=== PATIENT | female | born 1950 | race Caucasian/White ===

== ENCOUNTER → 2017-09-11 | Outpatient (CLI) | payer MEDICARE, OTHER ==
[~2017-09-11] MED LIST: BENICAR; BIOTIN PO; ESCITALOPRAM OX10 MG PO; FLOVENT HFA12 G1 INH; LEVAQUIN500 MG PO; LRT10 PO; METFORMIN PO; NEXIUM40 MG PO; NFD30TCR PO; NOVOLOG SQ; ONGLYZA PO; OSTEO BI-FLEX1 EAC1; POTASSIUM PO; PREDNISONE20 MG PO; PROAIR HFA INH8.5 GM INH; SINGULAIR10 MG PO; TESSALON PERLE100 MG PO; VITAMIN D
--- NOTE | 2017-09-11 13:31 | Diagnostic Imaging Report ---
PROCEDURE:X-RAY ABDOMEN - KUB COMPARISON:None available. INDICATIONS:CALCULUS OF KIDNEY FINDINGS: Limited by body habitus. There is a non-obstructed bowel-gas pattern. There are no calcifications projected over the renal shadows, expected course of the ureters or bladder. There are no acute osseous abnormalities. Degenerative changes of spine. Pelvic phleboliths. Right upper and lower quadrant surgical clips. CONCLUSION: No evidence of renal stone. None obstructive bowel gas pattern. Dictated by: Jean Barcenas M.D. on 09/11/2017 at 13:41 Electronically approved by: Jean Barcenas M.D. on 09/11/2017 at 13:41
== END ==
LOC: RAD 12:03
PROVIDERS: ATTEND Urology
DX: N20.0 Calculus of kidney (principal)
CPT/HCPCS: 74000

== ENCOUNTER → 2018-11-07 | Outpatient (CLI) | payer MEDICARE, OTHER ==
[~2018-11-07] MED LIST changes: +DIATRIZOATE MEGL/DIATRIZOA SOD 30 ML BTL PO ONE; +IOPAMIDOL 370 MG/ML 200 ML INFUS..BTL INJ ONE; +SODIUM CHLORIDE 0.9% 50ML 50 ML ONE
[2018-11-07 14:40] LABS: BLOOD UREA NITROGEN 12 mg/dL (7-26); BUN/CREATININE RATIO 15 (6-25); CREATININE, SERUM 0.82 mg/dL (0.57-1.11); EST GLOMERULAR FILTRATION RATE > 60 ML/MIN (60-)
--- NOTE | 2018-11-07 16:17 | Diagnostic Imaging Report ---
EXAM: CT Abdomen and Pelvis WITH contrast INDICATION: Abdominal Pain COMPARISON: None. TECHNIQUE: Abdomen and pelvis were scanned utilizing a multidetector helical scanner from the lung base to the pubic symphysis after administration of IV contrast. Coronal and sagittal reformations were obtained. Routine protocol was performed. Scan was performed when during portal venous phase. IV CONTRAST: 100 cc of Isovue 370 ORAL CONTRAST: Water COMPLICATIONS: None RADIATION DOSE: Total DLP: 276.8 mGy*cm CTDIvol has been reviewed. It is below the limits set by the Radiation Protocol Committee (RPC). FINDINGS: LINES and TUBES: None. LOWER THORAX: Patchy dependent atelectasis. Scattered coronary atherosclerosis. HEPATOBILIARY: Diffuse hepatic steatosis. No evidence of focal lesion. Status post cholecystectomy. There is mild extra- hepatic biliary dilation likely post cholecystectomy reservoir effect. SPLEEN: No splenomegaly. PANCREAS: No focal masses or ductal dilatation. ADRENALS: No adrenal nodules KIDNEYS/URETERS: Kidneys enhance symmetrically. No evidence of hydronephrosis, solid mass, or stone. GI TRACT: No evidence of distention. There is mild thickening of the pylorus. There is scattered colonic diverticulosis without CT evidence of diverticulitis. The appendix is not visualized. There are surgical clips in the right lower quadrant, which may reflect prior appendectomy. PELVIC ORGANS/BLADDER: Status post hysterectomy. LYMPH NODES: No lymphadenopathy. VESSELS: There are scattered atherosclerotic calcifications in the aorta and branch vessels. PERITONEUM / RETROPERITONEUM: No free air or fluid. BONES AND SOFT TISSUES: No acute osseous abnormality. No suspicious lytic or blastic lesions. Mild degenerative disc changes of the lumbar spine. CONCLUSION: Diffuse hepatic steatosis. Mild pyloric thickening may reflect contraction or inflammatory etiology. If clinically indicated, endoscopy may be considered. Status post cholecystectomy. Appendix is not visualized. Signed by: Dr. Darrius Rawls MD on 11/07/2018 4:13 PM
== END ==
LOC: CT 13:52
PROVIDERS: ATTEND Family Medicine
DX: R10.84 Generalized abdominal pain (principal)
CPT/HCPCS: 36415; 74177; 82565; 84520; Q9967

== ENCOUNTER → 2018-11-15 | Day surgery (SDC) | payer MEDICARE, OTHER ==
[2018-11-13 11:18] LABS: BASOPHILS % 0.4 % (0.0-1.0); EOSINOPHILS # (AUTO) 0.1 (0.0-0.4); EOSINOPHILS % 1.3 % (0.0-6.0); HEMATOCRIT 37.1 % (34.2-44.1); HEMOGLOBIN 12.5 g/dL (12.0-16.0); LYMPHOCYTES # (AUTO) 1.4 (1.0-3.2); LYMPHOCYTES % 31.4 % (18.0-39.1); MEAN CORPUSCULAR HEMOGLOBIN 31.3 pg (28-32); MEAN CORPUSCULAR HGB CONC 33.7 g/dL (31-35); MONOCYTES # (AUTO) 0.5 (0.2-0.8); MONOCYTES % 10.7 % (4.4-11.3); NEUTROPHILS # (AUTO) 2.6 (2.1-6.9); NEUTROPHILS % 55.8 % (38.7-80.0); PLATELET COUNT 168 x10e3/uL (140-360); RED BLOOD COUNT 3.99 x10e6/uL (3.6-5.1); RED CELL DISTRIBUTION WIDTH 14.1 % (11.7-14.4)
[~2018-11-15] MED LIST changes: -DIATRIZOATE MEGL/DIATRIZOA SOD 30 ML BTL PO ONE; +DICYCLOMINE HCL10 MG PO; +ENBREL50 MG/1 ML SQ; +FENTANYL CITRATE/PF 100MCG/2 ML INJ ONE; +FOLIC ACID1 MG PO; +HYOSCYAMINE 0.125 MG TAB ONE; -IOPAMIDOL 370 MG/ML 200 ML INFUS..BTL INJ ONE; +JANUVIA100 MG PO; +LEVOTHYROXINE137 MCG PO; +METHOTREXATE2.5 MG PO; +MIDAZOLAM HCL 2 MG/2 ML VIAL ONE; +PROPOFOL IV EMULSION 10 MG/ML 50 ML VIAL ONE; -SODIUM CHLORIDE 0.9% 50ML 50 ML ONE; +TRESIBA SQ
--- OUTSIDE RECORDS SUMMARY | 2018-11-15 06:42 | XMS REPORT | Continuity of Care Document ---
Author [facility] [place] [facility] Address Unknown Phone Unavailable Problems Problem Status Onset Date Classification Date Reported Comments Source Long-term use of high-risk medication Active Problem 11/08/2018 Miguel A Pastor Osteoporosis screening Active Diagnosis 10/11/2017 Miguel A Pastor Primary osteoarthritis, right hand Active Problem 11/08/2018 Miguel A Dawit Seronegative rheumatoid arthritis Active Problem 11/08/2018 Miguel A Dawit Inflammatory arthritis Active Problem 11/08/2018 Miguel A Dawit Primary osteoarthritis of left hand Active Problem 11/08/2018 Miguel A Pastor Low back pain Active Diagnosis 07/31/2018 Miguel A Pastor Discoloration of skin Active Diagnosis 10/11/2017 Miguel A Pastor Medications Medication Details Route Status Patient Instructions Ordering Provider Order Date Source Methotrexate 4 tablets Orally Active 2.5 MG Orally once a week [place] 07/30/2018 Miguel A Pastor Methotrexate 6 tablets Orally Active 2.5 MG Orally q week [place] 01/08/2018 Miguel A Pastor Folic Acid 1 tablet Orally Active 1 MG Orally Once a day [place] 01/08/2018 Miguel A Pastor Enbrel 1 ml Subcutaneous Active 50 MG/ML Subcutaneous once a week [place] 10/09/2017 Miguel A Pastor Methotrexate Sodium 8 tablest once a week Orally Active 2.5 MG Orally weekly [facility] 06/14/2017 Miguel A Pastor Folic Acid 1 tablet Orally Active 1 MG Orally Once a day [facility] 06/14/2017 Miguel A Pastor Levothyroxine Sodium 1 tablet Orally Active 0.15 MG Orally Once a day [place] Miguel A Pastor Ibuprofen 1 tablet with food or milk Orally Active 600 MG Orally twice a day as needed [facility] Miguel A Pastor Montelukast Sodium 1 tablet in the evening Orally Active 10 MG Orally Once a day [place] Miguel A Pastor Escitalopram Oxalate 1 tablet Orally Active 10 MG Orally Once a day [place] Miguel A Pastor MetFORMIN HCl ER 2 tablets Orally Active 500 MG Orally twice a day [place] Miguel A Pastor Januvia 1 tablet Orally Active 100 MG Orally Once a day [place] Miguel A Pastor Enbrel 1 ml Subcutaneous Active 50 MG/ML Subcutaneous once a week [place] Miguel A Pastor Allergies, Adverse Reactions, Alerts Substance Category Reaction Severity Reaction type Status Date Reported Comments Source Codeine Adverse Reaction anaphylaxis Adverse Reaction Active 03/20/2018 Miguel A Pastor Tetanus Immune Globulin Adverse Reaction flu symptoms Adverse Reaction Active 07/30/2018 Miguel A Pastor Sulfazine Adverse Reaction Info Not Available Adverse Reaction Active 07/30/2018 Miguel A Pastor Morphine Sulfate Adverse Reaction itching Adverse Reaction Active 07/30/2018 Miguel A Pastor Leflunomide Adverse Reaction Info Not Available Adverse Reaction Active 07/30/2018 Miguel A Pastor Immunizations Immunization Date Given Site Status Last Updated Comments Source Results Order Name Results Value Reference Range Date Interpretation Comments Source Vital Signs Vital Sign Value Date Comments Source Weight 171.6 07/30/2018 Miguel A Pastor Height 65 07/30/2018 Miguel A Pastor Temperature Oral (F) 98.7 F 07/30/2018 Miguel A Pastor Heart Rate 84 07/30/2018 Miguel A Pastor Diastolic (mm Hg) 60 07/30/2018 Miguel A Pastor Systolic (mm Hg) 118 07/30/2018 Miguel A Pastor Weight 176.1 05/29/2018 Miguel A Pastor Height 64 05/29/2018 Miguel A Pastor Temperature Oral (F) 99.1 F 05/29/2018 Miguel A Pastor Heart Rate 76 05/29/2018 Miguel A Pastor Diastolic (mm Hg) 80 05/29/2018 Miguel A Pastor Systolic (mm Hg) 132 05/29/2018 Miguel A Pastor Weight 167 03/20/2018 Miguel A Pastor Height 64 03/20/2018 Miguel A Pastor Temperature Oral (F) 99.1 F 03/20/2018 Miguel A Pastor Heart Rate 76 03/20/2018 Miguel A Pastor Diastolic (mm Hg) 62 03/20/2018 Miguel A Pastor Systolic (mm Hg) 118 03/20/2018 Miguel A Pastor Weight 167 01/08/2018 Miguel A Pastor Height 64 01/08/2018 Miguel A Pastor Temperature Oral (F) 98.1 F 01/08/2018 Miguel A Pastor Heart Rate 72 01/08/2018 Miguel A Pastor Diastolic (mm Hg) 72 01/08/2018 Miguel A Pastor Systolic (mm Hg) 108 01/08/2018 Miguel A Pastor Weight 176 11/02/2017 Miguel A Pastor Height 64 11/02/2017 Miguel A Pastor Temperature Oral (F) 98.2 F 11/02/2017 Miguel A Pastor Heart Rate 80 11/02/2017 Miguel A Pastor Diastolic (mm Hg) 70 11/02/2017 Miguel A Pastor Systolic (mm Hg) 126 11/02/2017 Miguel A Pastor Weight 175 10/09/2017 Miguel A Pastor Height 64 10/09/2017 Miguel A Pastor Temperature Oral (F) 98.5 F 10/09/2017 Miguel A Pastor Heart Rate 76 10/09/2017 Miguel A Pastor Diastolic (mm Hg) 76 10/09/2017 Miguel A Pastor Systolic (mm Hg) 108 10/09/2017 Miguel A Pastor Weight 169 09/08/2017 Miguel A Pastor Height 64 09/08/2017 Miguel A Pastor Temperature Oral (F) 98.5 F 09/08/2017 Miguel A Pastor Heart Rate 80 09/08/2017 Miguel A Pastor Diastolic (mm Hg) 70 09/08/2017 Miguel A Pastor Systolic (mm Hg) 110 09/08/2017 Miguel A Pastor Weight 175 07/10/2017 Miguel A Pastor Height 64 07/10/2017 Miguel A Pastor Temperature Oral (F) 98.1 F 07/10/2017 Miguel A Pastor Heart Rate 77 07/10/2017 Miguel A Pastor Diastolic (mm Hg) 78 07/10/2017 Miguel A Pastor Systolic (mm Hg) 118 07/10/2017 Miguel A Pastor Encounters Location Location Details Encounter Type Encounter Number Reason For Visit Attending Provider ADM Date DC Date Status Source Procedures Procedure Code Date Perfomer Comments Source
--- OUTSIDE RECORDS SUMMARY | 2018-11-15 06:42 | XMS REPORT ---
Author Author Filomena Heller Organization [employer] Address Unknown Phone Unavailable Care Team Providers Care Religious Healer Name Role Phone Pnia Pipoerica CP Unavailable Allergies, Adverse Reactions, Alerts Substance Reaction Event Type Codeine anaphylaxis Drug Allergy Tetanus Immune Globulin flu symptoms Drug Allergy Sulfazine Info Not Available Drug Allergy Morphine Sulfate itching Drug Allergy Leflunomide Info Not Available Drug Allergy Problems Problem Type Condition Code Onset Dates Condition Status Assessment Long-term use of high-risk medication Z79.899 Active Assessment Osteoporosis screening Z13.820 Active Problem Long-term use of high-risk medication Z79.899 Active Problem Primary osteoarthritis, right hand M19.041 Active Problem Seronegative rheumatoid arthritis M06.00 Active Assessment Seronegative rheumatoid arthritis M06.00 Active Assessment Inflammatory arthritis M19.90 Active Problem Primary osteoarthritis of left hand M19.042 Active Problem Inflammatory arthritis M19.90 Active Medications Medication Code System Code Instructions Start Date End Date Status Dosage Levothyroxine Sodium [facility] [address]-77 0.15 MG Orally Once a day Active 1 tablet Ibuprofen ND 08024486475 600 MG Orally twice a day as needed Active 1 tablet with food or milk Methotrexate Sodium NDC 0 2.5 MG Orally weekly Jun 14, 2017 Active 8 tablest once a week Montelukast Sodium ND 40186322593 10 MG Orally Once a day Active 1 tablet in the evening Escitalopram Oxalate ND 95155927316 10 MG Orally Once a day Active 1 tablet MetFORMIN HCl ER ND 90177580943 500 MG Orally twice a day Active 2 tablets Folic Acid ND 74722116826 1 MG Orally Once a day Jun 14, 2017 March 07, 2018 Active 1 tablet Vital Signs Date/Time: Sep 08, 2017 BMI 29.01 Index Weight 169 lbs Height 64 in Temperature 98.5 F Cardiac Monitoring Heart Rate 80 /min Blood Pressure Diastolic 70 mm Hg Blood Pressure Systolic 110 mm Hg Results No Known Results Summary Purpose [employer] Submission
--- OUTSIDE RECORDS SUMMARY | 2018-11-15 06:42 | XMS REPORT ---
Author Author Addi Pastor Organization [employer] Address Unknown Phone Unavailable Care Team Providers Care Haul Truck Driver Name Role Phone Addi Pastor CP Unavailable Allergies No Known Allergies Problems Problem Type Condition Code Onset Dates Condition Status Problem Long-term use of high-risk medication Z79.899 Active Problem Primary osteoarthritis, right hand M19.041 Active Problem Seronegative rheumatoid arthritis M06.00 Active Problem Primary osteoarthritis of left hand M19.042 Active Problem Inflammatory arthritis M19.90 Active Medications No Known Medications Results No Known Results Summary Purpose [employer] Submission
--- OUTSIDE RECORDS SUMMARY | 2018-11-15 06:42 | XMS REPORT ---
Author Author Addi Pastor Organization [employer] Address Unknown Phone Unavailable Care Team Providers Care In School Suspension Coordinator Name Role Phone Addi Pastor CP Unavailable Allergies, Adverse Reactions, Alerts Substance Reaction Event Type Codeine anaphylaxis Drug Allergy Tetanus Immune Globulin flu symptoms Drug Allergy Sulfazine Info Not Available Drug Allergy Morphine Sulfate itching Drug Allergy Leflunomide Info Not Available Drug Allergy Problems Problem Type Condition Code Onset Dates Condition Status Assessment Seronegative rheumatoid arthritis M06.00 Active Problem Long-term use of high-risk medication Z79.899 Active Problem Primary osteoarthritis, right hand M19.041 Active Problem Seronegative rheumatoid arthritis M06.00 Active Assessment Inflammatory arthritis M19.90 Active Assessment Long-term use of high-risk medication Z79.899 Active Problem Primary osteoarthritis of left hand M19.042 Active Problem Inflammatory arthritis M19.90 Active Medications Medication Code System Code Instructions Start Date End Date Status Dosage Methotrexate [facility] 04010098042 2.5 MG Orally q week January 08, 2018 Active 4 tablets MetFORMIN HCl ER ND 82624344754 500 MG Orally twice a day Active 2 tablets Levothyroxine Sodium [facility] [address]-24 0.15 MG Orally Once a day Active 1 tablet Folic Acid [facility] 78583480838 1 MG Orally Once a day January 08, 2018 May 08, 2018 Active 1 tablet Escitalopram Oxalate ND 58269480822 10 MG Orally Once a day Active 1 tablet Enbrel [facility] 32990651058 50 MG/ML Subcutaneous once a week Active 1 ml Montelukast Sodium ND 67666885822 10 MG Orally Once a day Active 1 tablet in the evening Vital Signs Date/Time: January 08, 2018 BMI 28.66 Index Weight 167 lbs Height 64 in Temperature 98.1 F Cardiac Monitoring Heart Rate 72 /min Blood Pressure Diastolic 72 mm Hg Blood Pressure Systolic 108 mm Hg Results No Known Results Summary Purpose [employer] Submission
--- OUTSIDE RECORDS SUMMARY | 2018-11-15 06:42 | XMS REPORT ---
Author Author Addi Pastor Organization [employer] Address Unknown Phone Unavailable Care Team Providers Care Yarn Texturing Machine Operator Name Role Phone Addi Pastor CP Unavailable Allergies No Known Allergies Problems Problem Type Condition Code Onset Dates Condition Status Problem Long-term use of high-risk medication Z79.899 Active Problem Primary osteoarthritis, right hand M19.041 Active Problem Seronegative rheumatoid arthritis M06.00 Active Assessment Seronegative rheumatoid arthritis M06.00 Active Problem Primary osteoarthritis of left hand M19.042 Active Problem Inflammatory arthritis M19.90 Active Medications Medication Code System Code Instructions Start Date End Date Status Dosage Enbrel [facility] 22243733334 50 MG/ML Subcutaneous once a week Oct 09, 2017 Active 1 ml Results No Known Results Summary Purpose [employer] Submission
--- OUTSIDE RECORDS SUMMARY | 2018-11-15 06:42 | XMS REPORT | Clinical Summary ---
Author Author [employer] [facility] [employer] Address Unknown Phone Unavailable Care Team Providers Care Steam Distribution Supervisor Name Role Phone Herman Pierre DO PCP Allergies Not on File Medications Not on file Active Problems Not on file Encounters Care Team Description Date Type Specialty Skip Velarde MD Low back pain, unspecified back pain laterality, unspecified chronicity, with sciatica presence unspecified (Primary Dx) 08/15/2018 Transcribe Physical Therapy Orders Skip Velarde MD Low back pain, unspecified back pain laterality, unspecified chronicity, with sciatica presence unspecified (Primary Dx); Spondylosis of lumbosacral region without myelopathy or radiculopathy; Other intervertebral disc degeneration, lumbar region 07/18/2018 Transcribe Physical Therapy Orders after 11/14/2017 Social History Date Tobacco Use Types Packs/Day Years Used Never Assessed Sex Assigned at Date Recorded Not on file Industry Job Start Date Occupation Not on file Not on file Not on file Travel End Travel History Travel Start No recent travel history available. Last Filed Vital Signs Not on file Plan of Treatment Health Maintenance Due Date Last Done Comments BREAST CANCER SCREENING 2001 COLON CANCER SCREENING 2001 SHINGLES VACCINES (#1) 2001 65+ PNEUMOCOCCAL VACCINE 2016 (1 of 2 - PCV13) PNEUMOCOCCAL 2016 POLYSACCHARIDE VACCINE AGE 65 AND OVER INFLUENZA VACCINE 03/21/2018 Results Not on fileafter 11/14/2017 Insurance Payer Benefit Subscriber ID Type Phone Address Plan / Group MEDICARE MEDICARE xxxxxxxxxxx Medicare [place] PART A AND B AETNA AETNA xxxxxxxxx HMO HMO,POS,EP O, MC/EC Advance Directives Patient has advance care planning documents on file. For more information, jhony dunne contact: Jas Wright [address] [place] [address]
--- OUTSIDE RECORDS SUMMARY | 2018-11-15 06:42 | XMS REPORT ---
Author Author Filomena Heller Organization [employer] Address Unknown Phone Unavailable Care Team Providers Care Tobacco Warehouse Agent Name Role Phone Filomena Heller CP Unavailable Allergies, Adverse Reactions, Alerts Substance Reaction Event Type Codeine anaphylaxis Drug Allergy Tetanus Immune Globulin flu symptoms Drug Allergy Sulfazine Info Not Available Drug Allergy Morphine Sulfate itching Drug Allergy Leflunomide Info Not Available Drug Allergy Problems Problem Type Condition Code Onset Dates Condition Status Problem Primary osteoarthritis, right hand M19.041 Active Problem Primary osteoarthritis of left hand M19.042 Active Problem Long-term use of high-risk medication Z79.899 Active Assessment Long-term use of high-risk medication Z79.899 Active Problem Inflammatory arthritis M19.90 Active Assessment Inflammatory arthritis M19.90 Active Medications Medication Code System Code Instructions Start Date End Date Status Dosage Escitalopram Oxalate ND 34102966794 10 MG Orally Once a day Active 1 tablet Ibuprofen ND 20008484049 600 MG Orally twice a day as needed Active 1 tablet with food or milk Folic Acid ND 56441310831 1 MG Orally Once a day Jun 14, 2017 Oct 12, 2017 Active 1 tablet Montelukast Sodium ND 00447953684 10 MG Orally Once a day Active 1 tablet in the evening Levothyroxine Sodium [facility] [address]-24 0.15 MG Orally Once a day Active 1 tablet Methotrexate Sodium ND 0 2.5 MG Orally weekly Jun 14, 2017 Active 8 tablest once a week MetFORMIN HCl ER ND 84703598047 500 MG Orally twice a day Active 2 tablets Vital Signs Date/Time: Jul 10, 2017 BMI 30.04 Index Weight 175 lbs Height 64 in Temperature 98.1 F Cardiac Monitoring Heart Rate 77 /min Blood Pressure Diastolic 78 mm Hg Blood Pressure Systolic 118 mm Hg Results No Known Results Summary Purpose [employer] Submission
--- OUTSIDE RECORDS SUMMARY | 2018-11-15 06:42 | XMS REPORT ---
Author Author Addi Pastor Organization [employer] Address Unknown Phone Unavailable Care Team Providers Care Manager Program Name Role Phone Addi Pastor CP Unavailable [...]
--- OUTSIDE RECORDS SUMMARY | 2018-11-15 06:42 | XMS REPORT ---
Author Author Uzma Guillaume [facility] [employer] Address Unknown Phone Unavailable Care Team Providers Care Search Engine Marketing Manager Name Role Phone Uzma Guillaume CP Unavailable Allergies, Adverse Reactions, Alerts Substance [...] Assessment Seronegative rheumatoid arthritis M06.00 Active Assessment Long-term use of high-risk medication Z79.899 Active Problem Primary osteoarthritis of left hand M19.042 Active Problem Inflammatory arthritis M19.90 Active Medications Medication Code System Code Instructions Start Date End Date Status Dosage Montelukast Sodium [facility] 23883072745 10 MG Orally Once a day Active 1 tablet in the evening Levothyroxine Sodium [facility] [address]-34 0.15 MG Orally Once a day Active 1 tablet Escitalopram Oxalate [facility] 22828674588 10 MG Orally Once a day Active 1 tablet Enbrel [facility] 26773990953 50 MG/ML Subcutaneous once a week Oct 09, 2017 Active 1 ml MetFORMIN HCl ER [facility] 00494533635 500 MG Orally twice a day Active 2 tablets Vital Signs Date/Time: November 02, 2017 BMI 30.21 Index Weight 176 lbs Height 64 in Temperature 98.2 F Cardiac Monitoring Heart Rate 80 /min Blood Pressure Diastolic 70 mm Hg Blood Pressure Systolic 126 mm Hg Results No Known Results Summary Purpose [employer] Submission
--- OUTSIDE RECORDS SUMMARY | 2018-11-15 06:42 | XMS REPORT ---
Author Author Filomena Heller Organization [employer] Address Unknown Phone Unavailable Care Team Providers Care Service Delivery Supervisor Name Role Phone Filomena Heller CP Unavailable Allergies, Adverse Reactions, Alerts Substance Reaction Event Type Codeine anaphylaxis Drug Allergy Tetanus Immune Globulin flu symptoms Drug Allergy Sulfazine Info Not Available Drug Allergy Morphine Sulfate itching Drug Allergy Leflunomide Info Not Available Drug Allergy Problems Problem Type Condition Code Onset Dates Condition Status Assessment Discoloration of skin L81.9 Active Assessment Inflammatory arthritis M19.90 Active Assessment Osteoporosis screening Z13.820 Active Problem [...] Date End Date Status Dosage Montelukast Sodium [facility] 51019597258 10 MG Orally Once a day Active 1 tablet in the evening Enbrel [facility] 67608805394 50 MG/ML Subcutaneous once a week Oct 09, 2017 Active 1 ml MetFORMIN HCl ER ND 56856249071 500 MG Orally twice a day Active 2 tablets Folic Acid ND 09609638340 1 MG Orally Once a day Jun 14, 2017 Active 1 tablet Methotrexate Sodium NDC 0 2.5 MG Orally weekly Jun 14, 2017 Active 8 tablest once a week Escitalopram Oxalate ND 01432862854 10 MG Orally Once a day Active 1 tablet Levothyroxine Sodium [facility] [address]-43 0.15 MG Orally Once a day Active 1 tablet Vital Signs Date/Time: Oct 09, 2017 BMI 30.04 Index Weight 175 lbs Height 64 in Temperature 98.5 F Cardiac Monitoring Heart Rate 76 /min Blood Pressure Diastolic 76 mm Hg Blood Pressure Systolic 108 mm Hg Results Name Result Date Reference Range Unit Abnormality Flag COMPREHENSIVE METABOLIC PANEL W/EGFR ----CALCIUM 9.4 20171009 8.6-10.4 mg/dL N ----CARBON DIOXIDE 31 20171009 20-31 mmol/L N ----ALT 26 20171009 6-29 U/L N ----CREATININE 0.77 20171009 0.50-0.99 mg/dL N ----AST 24 20171009 10-35 U/L N ----eGFR NON-AFR. TRINIDADIAN 80 20171009 > OR=60 mL/min/1.73m2 N ----ALKALINE PHOSPHATASE 100 20171009 33-130 U/L N ----eGFR 93 20171009 > OR=60 mL/min/1.73m2 N ----BILIRUBIN, TOTAL 0.5 20171009 0.2-1.2 mg/dL N ----BUN/CREATININE RATIO NOT APPLICABLE 20171009 6-22 (calc) ----ALBUMIN/GLOBULIN RATIO 1.8 20171009 1.0-2.5 (calc) N ----SODIUM 136 20171009 135-146 mmol/L N ----GLOBULIN 2.3 [id number] 1.9-3.7 g/dL (calc) N ----POTASSIUM 4.2 20171009 3.5-5.3 mmol/L N ----GLUCOSE 361 20171009 65-99 mg/dL H ----CHLORIDE 99 20171009 98-110 mmol/L N ----ALBUMIN 4.1 20171009 3.6-5.1 g/dL N ----UREA NITROGEN (BUN) 10 20171009 7-25 mg/dL N ----PROTEIN, TOTAL 6.4 20171009 6.1-8.1 g/dL N SED RATE BY MODIFIED WESTERGREN ----SED RATE BY MODIFIED WESTERGREN 6 20171009 < OR=30 mm/h N C-REACTIVE PROTEIN ----C-REACTIVE PROTEIN 4.9 20171009 <8.0 mg/L N CBC (INCLUDES DIFF/PLT) ----MCHC 33.2 20171009 32.0-36.0 g/dL N ----MCH 31.2 20171009 27.0-33.0 pg N ----PLATELET COUNT 200 [id number] 140-400 Thousand/uL N ----RDW 13.5 17662738 11.0-15.0 % N ----BASOPHILS 0.9 33678905 % N ----ABSOLUTE NEUTROPHILS 1824 [id number] 0535-2764 cells/uL N ----ABSOLUTE LYMPHOCYTES 1180 [id number] 850-3900 cells/uL N ----MPV 10.1 [id number] 7.5-12.5 fL N ----ABSOLUTE BASOPHILS 32 41769402 0-200 cells/uL N ----HEMATOCRIT 41.9 60954581 35.0-45.0 % N ----NEUTROPHILS 52.1 52812130 % N ----MCV 94.2 60601126 80.0-100.0 fL N ----RED BLOOD CELL COUNT 4.45 [id number] 3.80-5.10 Million/uL N ----ABSOLUTE MONOCYTES 343 28230158 200-950 cells/uL N ----ABSOLUTE EOSINOPHILS 123 93588158 15-500 cells/uL N ----HEMOGLOBIN 13.9 30066647 11.7-15.5 g/dL N ----EOSINOPHILS 3.5 89612410 % N ----WHITE BLOOD CELL COUNT 3.5 18171644 3.8-10.8 Thousand/uL L ----LYMPHOCYTES 33.7 71814939 % N ----MONOCYTES 9.8 78097906 % N Summary Purpose eClinicalWorks Submission
--- OUTSIDE RECORDS SUMMARY | 2018-11-15 06:42 | XMS REPORT ---
Author Author Adid Pastor Organization [employer] Address Unknown Phone Unavailable Care Team Providers Care Primary Care Pediatrician Name Role Phone Addi Pastor CP Unavailable [...]
--- OUTSIDE RECORDS SUMMARY | 2018-11-15 06:42 | XMS REPORT ---
Author Author Uzma Guillaume Organization [employer] Address Unknown Phone Unavailable Care Team Providers Care Foundry Technician Name Role Phone Uzma Guillaume Unavailable Allergies, Adverse Reactions, Alerts Substance Reaction Event Type Tetanus Immune Globulin flu symptoms Drug Allergy Sulfazine Info Not Available Drug Allergy Morphine Sulfate itching Drug Allergy Leflunomide Info Not Available Drug Allergy Problems Problem Type Condition Code Onset Dates Condition Status Assessment Long-term use of high-risk medication Z79.899 Active Assessment Low back pain M54.5 Active Problem Long-term use of high-risk medication Z79.899 Active Problem Primary osteoarthritis, right hand M19.041 Active Problem Seronegative rheumatoid arthritis M06.00 Active Assessment Seronegative rheumatoid arthritis M06.00 Active Problem Primary osteoarthritis of left hand M19.042 Active Problem Inflammatory arthritis M19.90 Active Medications Medication Code System Code Instructions Start Date End Date Status Dosage Levothyroxine Sodium [facility] [address]-03 0.15 MG Orally Once a day Active [address] [facility] 76070992300 100 MG Orally Once a day Active [address] [facility] 59895577538 50 MG/ML Subcutaneous once a week Oct 09, 2017 Active [address] [facility] 17834228919 2.5 MG Orally once a week Jul 30, 2018 Active 4 tablets Vital Signs Date/Time: Jul 30, 2018 BMI 28.55 Index Weight 171.6 lbs Height 65 in Temperature 98.7 F Cardiac Monitoring Heart Rate 84 /min Blood Pressure Diastolic 60 mm Hg Blood Pressure Systolic 118 mm Hg Results No Known Results Summary Purpose [employer] Submission
--- OUTSIDE RECORDS SUMMARY | 2018-11-15 06:42 | XMS REPORT ---
Author Author Addi Pastor Organization [employer] Address Unknown Phone Unavailable Care Team Providers Care Email Marketing Coordinator Name Role Phone Addi Pastor CP Unavailable Allergies, Adverse Reactions, Alerts Substance Reaction Event Type Codeine anaphylaxis Drug Allergy Tetanus Immune Globulin flu symptoms Drug Allergy Sulfazine Info Not Available Drug Allergy Morphine Sulfate itching Drug Allergy Leflunomide Info Not Available Drug Allergy Problems Problem Type Condition Code Onset Dates Condition Status Assessment Long-term use of high-risk medication Z79.899 Active Assessment Primary osteoarthritis, right hand M19.041 Active Assessment Primary osteoarthritis of left hand M19.042 Active [...] Date End Date Status Dosage Levothyroxine Sodium [facility] [address]-02 0.15 MG Orally Once a day Active 1 tablet Montelukast Sodium ND 13352740577 10 MG Orally Once a day Active 1 tablet in the evening MetFORMIN HCl ER ND 82893792333 500 MG Orally twice a day Active 2 tablets Enbrel [facility] 52314271802 50 MG/ML Subcutaneous once a week Oct 09, 2017 Active 1 ml Escitalopram Oxalate ND 55442438018 10 MG Orally Once a day Active 1 tablet Methotrexate ND 51266619196 2.5 MG Orally q week January 08, 2018 Active 6 tablets Folic Acid ND 95209811355 1 MG Orally Once a day January 08, 2018 Active 1 tablet Vital Signs Date/Time: March 20, 2018 BMI 28.66 Index Weight 167 lbs Height 64 in Temperature 99.1 F Cardiac Monitoring Heart Rate 76 /min Blood Pressure Diastolic 62 mm Hg Blood Pressure Systolic 118 mm Hg Results No Known Results Summary Purpose [employer] Submission
--- OUTSIDE RECORDS SUMMARY | 2018-11-15 06:43 | XMS REPORT ---
Author Author Addi Pastor Organization [employer] Address Unknown Phone Unavailable Care Team Providers Care Color Maker Name Role Phone Addi Pastor CP Unavailable [...] Start Date End Date Status Dosage Enbrel [facility] 73963994214 50 MG/ML Subcutaneous once a week Oct 09, 2017 Active 1 ml Results No Known Results Summary Purpose [employer] Submission
--- OUTSIDE RECORDS SUMMARY | 2018-11-15 06:43 | XMS REPORT ---
Author Author Addi Pastor Organization [employer] Address Unknown Phone Unavailable Care Team Providers Care Brewery Representative Name Role Phone Addi Pastor CP Unavailable [...]
--- OUTSIDE RECORDS SUMMARY | 2018-11-15 06:43 | XMS REPORT ---
Author Author Uzma Guillaume [facility] e[employer] Address Unknown Phone Unavailable Care Team Providers Care Chart Writer Name Role Phone Uzma Guillaume CP Unavailable Allergies, Adverse Reactions, Alerts Substance Reaction Event Type Tetanus Immune Globulin flu symptoms Drug Allergy Sulfazine Info Not Available Drug Allergy Morphine Sulfate itching Drug Allergy Leflunomide Info Not Available Drug Allergy Problems Problem Type Condition Code Onset Dates Condition Status Assessment Low back pain M54.5 Active Assessment Inflammatory arthritis M19.90 Active Assessment Long-term use of high-risk medication Z79.899 Active Problem Long-term use of high-risk medication Z79.899 Active Problem Primary osteoarthritis, right hand M19.041 Active Problem Seronegative rheumatoid arthritis M06.00 Active Assessment Seronegative rheumatoid arthritis M06.00 Active Problem Primary osteoarthritis of left hand M19.042 Active Problem Inflammatory arthritis M19.90 Active Medications Medication Code System Code Instructions Start Date End Date Status Dosage Enbrel [facility] 07496648155 50 MG/ML Subcutaneous once a week Oct 09, 2017 Active 1 ml Escitalopram Oxalate [facility] 45600729721 10 MG Orally Once a day Active 1 tablet Montelukast Sodium [facility] 40491036243 10 MG Orally Once a day Active 1 tablet in the evening MetFORMIN HCl ER [facility] 88205541777 500 MG Orally twice a day Active 2 tablets Folic Acid [facility] 98221233134 1 MG Orally Once a day January 08, 2018 Active 1 tablet Levothyroxine Sodium [facility] [address]-65 0.15 MG Orally Once a day Active 1 tablet Vital Signs Date/Time: May 29, 2018 BMI 30.22 Index Weight 176.1 lbs Height 64 in Temperature 99.1 F Cardiac Monitoring Heart Rate 76 /min Blood Pressure Diastolic 80 mm Hg Blood Pressure Systolic 132 mm Hg Results No Known Results Summary Purpose [employer] Submission
--- OUTSIDE RECORDS SUMMARY | 2018-11-15 06:43 | XMS REPORT ---
Author Author [facility] Address Unknown Phone Unavailable Care Team Providers Care Oracle Solutions Architect Name Role Phone HERLINDA ROMERO Unavailable Unavailable VIJAY VEGA Unavailable Unavailable YOVANI BOLANOS Unavailable Unavailable Problems This patient has no known problems. Allergies, Adverse Reactions, Alerts This patient has no known allergies or adverse reactions. Medications This patient has no known medications. Results Test Description Test Time Test Comments Text Results Atomic Results Result Comments CT ABDOMEN/PELVIS W 2018-11-07 15:58:00 [place] [address] Patient Name: SKY GUILLAUME MR #: [id number] : 1950 Age/Sex: 68/F Req #: [id number] Adm Physician: Ordered by: ROMERO ANDREW DO Report #: [id number] Location: CT Room/Bed: Procedure: [id number] CT/CT ABDOMEN/PELVIS W Exam Date: 11/07/18 Exam Time: 1515 REPORT STATUS: Signed EXAM: CT Abdomen and Pelvis WITH contrast INDICA TION: Abdominal Pain COMPARISON: None. TECHNIQUE: Abdomen and pelvis were scanned utilizing a multidetector helical scanner from the lung base to the pubic symphysis after administration of IV contrast. Coronal and sagittal reformations were obtained. Routine protocol was performed. Scan was performed when during portal venous phase. IV CONTRAST: 100 cc of Isovue 370 ORAL CONTRAST: Water COMPLICATIONS: None RADIATION DOSE: Total DLP: 276.8 mGy*cm CTDIvol has been reviewed. It is below the limits set by the Radiation Protocol Committee (RPC). FINDINGS: LINES and TUBES: None. LOWER THORAX: Patchy dependent atelectasis. Scattered coronary atherosclerosis. HEPATOBILIARY: Diffuse hepatic steatosis. No evidence of focal lesion. Status post cholecystectomy. There is mild extra- hepatic biliary dilation likely post cholecystectomy reservoir effect. SPLEEN: No splenomegaly. PANCREAS: No focal masses or ductal dilatation. ADRENALS: No adrenal nodules KIDNEYS/URETERS: Kidneys enhance symmetrically. No evidence of hydronephrosis, solid mass, or stone. GI TRACT: No evidence of distention. There is mild thickening of the pylorus. There is scattered colonic diverticulosis without CT evidence of diverticulitis. The appendix is not visualized. There are surgical clips in the right lower quadrant, which may reflect prior appendectomy. PELVIC ORGANS/BLADDER: Status post hysterectomy. LYMPH NODES: No lymphadenopathy. VESSELS: There are scattered atherosclerotic calcifications in the aorta and branch vessels. PERITONEUM / RETROPERITONEUM: No free air or fluid. BONES AND SOFT TISSUES: No acute osseous abnormality. No suspicious lytic or blastic lesions. Mild degenerative disc changes of the lumbar spine. CONCLUSION: Diffuse hepatic steatosis. Mild pyloric thickening may reflect contraction or inflammatory etiology. If clinically indicated, endoscopy may be considered. Status post cholecystectomy. Appendix is not visualized. Signed by: Dr. Denice Denton MD on 11/07/2018 4:13 PM Dictated By: DENICE DENTON MD [id number] Transcribed By: SARY on 11/07/18 1613 COPY TO: HERLINDA ROMERO DO SCR MAMM BILATERAL DILSHAD CAD DIGITAL 2018-10-09 16:07:11 - SCR MAMM BILATERAL DILSHAD CAD DIGITALBILATERAL DIGITAL SCREENING MAMMOGRAM 3D/2D WITH CAD: 10/09/2018CLINICAL: Asymptomatic. Digital breast tomosynthesis was performed in addition to routine CC and MLO views. Current mammographic images were evaluated by either a Original M-Vu or a AppNeta ImageChecker CAD (computer aided detection system). Comparison is made to exams dated 10/06/2017 mammogram, 07/22 mammogram, and 08/03/2015 mammogram - [facility]. There are scattered fibroglandular tissues in both breasts. There are benign vascular calcifications and calcifications in both breasts. No suspicious mass, architectural distortion, malignant type calcification, or lymph node abnormality detected. Breast architecture is stable compared to prior exams.IMPRESSION: BENIGNThere is no mammographic evidence of malignancy. Resume annual screening mammography in one year. Marck Salazar M.D. ss/penrad:10/09/2018 16:07:11 [employer]: Rosio Lopez FW, [facility]: BIRADS 1-2 Normal Mammogram BI-RADS: 2 Benign ABDOMEN-1VIEW (KUB) [place] [address] Patient Name: SKY GUILLAUME MR #: [id number] : 1950 Age/Sex: 67/F Req #: [id number] Adm Physician: Ordered by: VIJAY VEGA MD Report #: [id number] Location: RAD Room/Bed: Procedure: [id number] DX/ABDOMEN-1VIEW (KUB) Exam Date: 09/11/17 Exam Time: 1235 REPORT STATUS: Signed PROCEDURE: X-RAY ABDOMEN - KUB COMPARISON: None available. INDICATIONS: CALCULUS OF KIDNEY FINDINGS: Limited by body habitus. There is a non-obstructed bowel-gas pattern. There are no calcifications projected over the renal shadows, expected course of the ureters or bladder. There are no acute osseous abnormalities. Degenerative changes of spine. Pelvic phleboliths. Right upper and lower quadrant surgical clips. CONCLUSION: No evidence of renal stone. None obstructive bowel gas pattern. Dictated by: Jean South M.D. on 09/11/2017 at 13:41 Electronically approved by: Jean South M.D. on 09/11/2017 at 13:41 Dictated By: JEAN SOUTH MD 134 Transcribed By: GARRISON on 09/11/17 1341 COPY TO: VIJAY VEGA MD FOOT COMPLETE BILATERAL [place] [address] Patient Name: SKY GUILLAUME MR #: [id number] : 1950 Age/Sex: 67/F Req #: [id number] Adm Physician: Ordered by: YOVANI BOLANOS Report #: [id number] Location: [facility] Room/Bed: Procedure: [id number] DX/FOOT COMPLETE BILATERAL Exam Date: 06/05/17 Exam Time: 0750 REPORT STATUS: Signed PROCEDURE: FOOT COMPLETE BILATERAL TECHNIQUE: AP, lateral and oblique views of each foot totaling 6 radiographs INDICATION: Foot pain; arthritis COMPARISON: None. FINDINGS: Right: Joint space narrowing predominantly at the distal interphalangeal joints with subchondral sclerosis. Mild narrowing at the great toe interphalangeal and metatarsophalangeal joints. No focal erosion or periosteal reaction. Normal mineralization. Small plantar stomach ileus enthesophytes. Diffuse arteriosclerosis. Left: Distal and middle interphalangeal joint space narrowing with subchondral sclerosis. Mild narrowing of the great toe interphalangeal and metatarsophalangeal joint with adjacent sclerosis and osteophytosis. Normal bone mineralization. No periosteal reaction or erosion. Small plantar and Achilles enthesophytes. Regional arteriosclerosis. CONCLUSION: Interphalangeal and great toe osteoarthritis bilaterally. Plantar and Achilles enthesopathy bilaterally. Diffuse arteriosclerosis. Dictated by: Parag Guzman M.D. on 06/05/2017 at 8:34 Electronically approved by: Parag Guzman M.D. on 06/05/2017 at 8:34 Dictated By: PARAG GUZMAN MD 3 Transcribed By: GARRISON on 06/05/17833 COPY TO: YOVANI BOLANOS HAND BILATERAL 3 OR MORE VIEWS [place] [address] Patient Name: SKY GUILLAUME MR #: [id number] : 1950 Age/Sex: 67/F Req #: [id number] Adm Physician: Ordered by: YOVANI BOLANOS Report #: [id number] Location: [facility] Room/Bed: Procedure: [id number] DX/HAND BILATERAL 3 OR MORE VIEWS Exam Date: Exam Time: REPORT STATUS: Signed PROCEDURE: HAND BILATERAL 3 OR MORE VIEWS TECHNIQUE: AP, lateral and oblique views of each hand INDICATION: Arthritis; hand pain COMPARISON: None. FINDINGS: Mild distal interphalangeal joint space narrowing and subchondral sclerosis bilaterally. No periosteal reaction or erosion. Normal bone mineralization. Intact skeleton. Normal regional soft tissues. CONCLUSION: Distal interphalangeal dominant osteoarthritis without evidence of erosive arthropathy. Dictated by: Parag Guzman M.D. on 06/05/2017 at 8:37 Electronically approved by: Parag Guzman M.D. on 06/05/2017 at 8:37 Dictated By: PARAG GUZMAN MD 6 Transcribed By: GARRISON on 06/05/17836 COPY TO: YOVANI BOLANOS
--- OUTSIDE RECORDS SUMMARY | 2018-11-15 06:43 | XMS REPORT ---
Author Author Addi Pastor Organization [employer] Address Unknown Phone Unavailable Care Team Providers Care Balance Truing Inspector Name Role Phone Addi Pastor CP Unavailable [...]
[2018-11-15 11:15] VITALS: BP 142/95
--- NOTE | 2018-11-15 12:20 | Operative Report ---
DATE OF PROCEDURE: 11/15/2018 SURGEON: Lalito De La Torre MD PROCEDURES: Esophagogastroduodenoscopy with biopsies and colonoscopy with polypectomy. INDICATIONS FOR EGD: Upper abdominal pain. INDICATIONS FOR COLONOSCOPY: Colorectal cancer screening, constipation. MEDICATIONS: The patient was done under MAC, please see anesthesiologist's note. PROCEDURE IN DETAIL: With the patient in the left lateral decubitus position, flexible fiberoptic Olympus gastroscope was introduced into the esophagus under direct visualization without any difficulty. There was some patchy erythema noted in distal esophagus. The scope was then advanced with ease into the stomach traversing a small sliding hiatal hernia. Mucosa overlying the antrum and the body revealed some patchy erythema and [id number] edema and biopsies were obtained, sent to stain for H pylori. The pylorus was of normal contour and shape, it was intubated with ease and the scope was advanced all the way to the second portion of the duodenum. Biopsies were obtained from the proximal second portion to rule out sprue. The scope was then withdrawn back into the stomach and retroflexed. Mucosa overlying the fundus and cardia appeared to be within normal limits. The scope was then straightened out, it was subsequently withdrawn. The patient tolerated the procedure well. IMPRESSION: 1. Mild distal esophagitis. 2. Small sliding hiatal hernia. 3. Gastritis, biopsied. Biopsies sent to stain for Helicobacter pylori. 4. Rule out sprue. PLAN: Follow up histology. Initiate Protonix 40 mg one p.o. q.a.m. a.c. DESCRIPTION OF PROCEDURE: The patient was then turned around and after adequate lubrication of the anal canal, flexible fiberoptic Olympus colonoscope was inserted into the rectum with ease and advanced all the way to the cecum. One polyp was snared from the cecum and polypectomy site was hemoclipped. The scope was then withdrawn slowly. Mucosa overlying the ascending, transverse, and descending colon grossly appeared to be within normal limits. There were some scattered diverticular disease noted including one in the ascending colon and some diverticular disease in the sigmoid colon. One polyp was hot biopsied from the proximal rectum. The scope was then retroflexed into the distal rectum and small internal hemorrhoids were noted, none of which was actively bleeding. The scope was then straightened out, it was subsequently withdrawn. The patient tolerated the procedure well. IMPRESSION: 1. Cecal polyp snared. 2. Diverticulosis. 3. Rectal polyp, hot biopsied. 4. Internal hemorrhoids, none actively bleeding. PLAN: Follow up histology. Initiate high-fiber, low-fat diet. Initiate high-fiber supplement. The patient might benefit from a followup colonoscopy in 3 to 5 years. MD DOTTIE Uribe/RYAN /[id number] cc: Valeriy Mei DO
== END | disposition home or self-care (01) ==
LOC: OR 06:39
PROVIDERS: ATTEND Internal Medicine Gastroenterology
DX: K59.00 Constipation, unspecified (principal); D12.0 Benign neoplasm of cecum; D12.8 Benign neoplasm of rectum; K29.70 Gastritis, unspecified, without bleeding; K20.9 Esophagitis, unspecified; K21.9 Gastro-esophageal reflux disease without esophagitis; K44.9 Diaphragmatic hernia without obstruction or gangrene; K57.30 Diverticulosis of large intestine without perforation or abscess without bleeding; K64.8 Other hemorrhoids; M06.9 Rheumatoid arthritis, unspecified; I10 Essential (primary) hypertension; E11.9 Type 2 diabetes mellitus without complications; E03.9 Hypothyroidism, unspecified; F41.9 Anxiety disorder, unspecified; Z88.6 Allergy status to analgesic agent; Z88.7 Allergy status to serum and vaccine; Z01.810 Encounter for preprocedural cardiovascular examination; Z01.812 Encounter for preprocedural laboratory examination; Z79.4 Long term (current) use of insulin
CPT/HCPCS: 36415 ×2; 43239; 45384; 45385; 82948; 85025; 88305; 88312; 93005; J2250; J2704; 45378

== ENCOUNTER → 2018-12-10 | Outpatient (CLI) | payer MEDICARE, OTHER ==
[~2018-12-10] MED LIST changes: -FENTANYL CITRATE/PF 100MCG/2 ML INJ ONE; -HYOSCYAMINE 0.125 MG TAB ONE; -MIDAZOLAM HCL 2 MG/2 ML VIAL ONE; -PROPOFOL IV EMULSION 10 MG/ML 50 ML VIAL ONE
--- NOTE | 2018-12-10 11:49 | Diagnostic Imaging Report ---
EXAMINATION: Transabdominal pelvic ultrasound. CLINICAL INDICATION: Generalized abdominal pain COMPARISON: CT abdomen and pelvis 11/07/2018 DISCUSSION: Transverse and sagittal transabdominal images were obtained of the pelvis. The uterus is absent. The ovaries are not identified. No adnexal mass. No free fluid. IMPRESSION: Status post hysterectomy. Nonvisualization of the ovaries, which may relate to prior oophorectomy or be a consequence of small size and overlying bowel gas. Signed by: Dr. Raúl Brewer M.D. on 12/10/2018 11:46 AM
--- NOTE | 2018-12-10 11:52 | Diagnostic Imaging Report ---
EXAM: US ABDOMEN COMPLETE DATE: 12/10/2018 10:30 AM INDICATION: Generalized abdominal pain COMPARISON: CT abdomen and pelvis 11/07/2018 TECHNIQUE: Transverse and longitudinal delarosa scale and color doppler sonographic images of the upper abdomen were obtained. FINDINGS: LIVER 12.9 cm in the right midclavicular line. Increased echogenicity, normal contour, no masses. SPLEEN 8.4 cm in maximum diameter. Normal echogenicity, no masses. GALLBLADDER Surgically removed. BILE DUCTS No intra nor extra-hepatic biliary dilation. Common bile duct measures 0.3 cm PANCREAS: Visualized portions are normal. RIGHT KIDNEY: 9.4 cm Echogenicity: Normal Collecting System: No hydronephrosis Stones: None Cyst/Mass: None LEFT KIDNEY: 10.2 cm Echogenicity: Normal Collecting System: No hydronephrosis Stones: None Cyst/Mass: None VESSELS: Aorta: Nonaneurysmal Inferior Vena Cava: Patent Main Portal Vein: 0.9 cm, normal size with hepatopetal flow. FREE FLUID: None IMPRESSION: Status post cholecystectomy. Hepatic steatosis. Signed by: Dr. Raúl Brewer M.D. on 12/10/2018 11:48 AM
== END ==
LOC: US 10:09
PROVIDERS: ATTEND Family Medicine
DX: R10.84 Generalized abdominal pain (principal)
CPT/HCPCS: 76700; 76856

== ENCOUNTER → 2019-03-01 | Outpatient (CLI) | payer MEDICARE, OTHER ==
--- NOTE | 2019-03-01 14:39 | Diagnostic Imaging Report ---
EXAM: Renal Ultrasound INDICATION: Microscopic hematuria. COMPARISON: None TECHNIQUE: Transverse and longitudinal images of the kidneys and bladder were obtained. FINDINGS: Right Kidney: Length: Measures 9.0 x 5.0 x 4.6 cm Appearance: Normal echogenicity. Collecting system: No hydronephrosis Stones: None Cyst/Mass: None Left Kidney: Length: Measures 9.8 x 5.3 x 4.6 cm Appearance: Normal echogenicity. Collecting system: No hydronephrosis Stones: None Cyst/Mass: None Bladder: The prevoid volume is 520 cc. Bilateral ureteral jets are visualized. IMPRESSION: Unremarkable renal ultrasound. Signed by: Dr. Darrius Rawls MD on 03/01/2019 2:36 PM
--- NOTE | 2019-03-01 15:01 | Diagnostic Imaging Report ---
Exam: KUB - 2 views Clinical History: Renal calculus. Comparison: Renal ultrasound 03/01/[address] abdomen/pelvis 11/07/2018. Findings: No evidence of calcification overlying the expected course of the kidneys or ureters. Calcified phleboliths in the pelvis. Surgical clips project over the right upper and lower quadrants. Nonobstructive bowel gas pattern. No acute osseous abnormality. Impression: No radiographic evidence of nephrolithiasis. Signed by: Dr. Darrius Rawls MD on 03/01/2019 2:58 PM
== END ==
LOC: US 13:29
PROVIDERS: ATTEND Urology
DX: N20.0 Calculus of kidney (principal); R31.21 Asymptomatic microscopic hematuria
CPT/HCPCS: 74018; 76770